=== PATIENT | female | born 1965 | race Caucasian/White ===

== ENCOUNTER 2023-08-28 03:19 | Emergency (ER) | payer OTHER ==
[2023-08-28] MEDS: Sodium Chloride 0.9% 1,000 ML IV SCH (03:29)
[2023-08-28 03:32] LABS: BASOPHILS ABSOLUTE AUTO 0.06 K/uL (0.00-0.10); BASOPHILS PERCENT AUTO 0.4 % (0.1-1.3); EOSINOPHILS ABSOLUTE AUTO 0.05 K/uL (0.00-0.40); EOSINOPHILS PERCENT AUTO 0.4 % (0.0-5.4); HEMATOCRIT 40.5 % (34.3-46.0); HEMOGLOBIN 13.7 g/dL (11.2-15.5); IMMATURE GRAN ABSOLUTE AUTO 0.16 K/uL (0.00-0.23); IMMATURE GRAN PERCENT AUTO 1.1 % (0.0-0.7); LYMPHOCYTES ABSOLUTE AUTO 1.54 K/uL (0.8-3.3); LYMPHOCYTES PERCENT AUTO 10.8 % (11.4-47.7); MEAN CORPUSCULAR HEMOGLOBIN 32.2 pg (31.6-35.5); MEAN CORPUSCULAR HGB CONC 33.8 g/dL (31.6-35.5); MEAN CORPUSCULAR VOLUME 95.3 fL (81.4-99.0); MONOCYTES ABSOLUTE AUTO 0.76 K/uL (0.20-0.90); MONOCYTES PERCENT AUTO 5.3 % (3.3-12.6); NEUTROPHILS ABSOLUTE AUTO 11.64 K/uL (1.0-7.6); PLATELET COUNT,PLT 241 K/uL (130-375); RED BLOOD CELL COUNT 4.25 M/uL (3.77-5.24); WHITE BLOOD CELL COUNT,WBC 14.2 K/uL (3.2-11.0)
[2023-08-28 03:52] LABS: ALANINE AMINOTRANSFERASE,ALT 97 U/L (12-78); ALBUMIN 3.8 g/dL (3.4-5.0); ALKALINE PHOSPHATASE 78 U/L (46-116); ANION GAP 12.7 mmol/L (5.0-14.0); ASPARTATE AMNIOTRANSFERASE,AST 89 U/L (15-37); BILIRUBIN TOTAL 0.3 mg/dL (0.2-1.0); BLOOD UREA NITROGEN,BUN 18 mg/dL (7-18); CALCIUM 8.9 mg/dL (8.5-10.1); CARBON DIOXIDE,CO2 26 mmol/L (21-32); CHLORIDE,CL 101 mmol/L (100-108); CREATININE 0.9 mg/dL (0.6-1.0); ESTIMATED GFR 73 mL/min (>60); GLUCOSE RANDOM 137 mg/dL (74-106); POTASSIUM,K 3.7 mmol/L (3.6-5.2); PROTEIN TOTAL,TP 7.5 g/dL (6.4-8.2); SODIUM,NA 140 mmol/L (140-148)
[2023-08-28] MEDS: fentaNYL 50 MCG/ML SDV IVPUSH ONE (05:06)
[2023-08-28] MEDS: Iopamidol 612 MG/ML 100 ML Bottle IV PRN (05:23)
[2023-08-28] MEDS: Sodium Chloride 0.9% 100 ML IV SCH (05:24)
[2023-08-28] MEDS: HYDROmorphone 0.5 MG/0.5 ML Syringe IVPUSH ONE (05:52)
== END 2023-08-28 05:53 | disposition other institution (70) ==
LOC: JP.ED 03:19 → EDBD 03:19 → JP.ED 05:53
DX: S32.810A Multiple fractures of pelvis with stable disruption of pelvic ring, initial encounter for closed fracture (principal); F10.120 Alcohol abuse with intoxication, uncomplicated; Z79.899 Other long term (current) drug therapy; X58.XXXA Exposure to other specified factors, initial encounter
CPT/HCPCS: 36415; 70450; 71260; 72125; 74177; 76377; 80053; 80307; 85025; 96361; 96374; 96375; 99284; 99285; J1170; J3010; J3490; J7030; Q9967